=== PATIENT | male | born 1985 | race Caucasian/White ===

== ENCOUNTER 2021-07-09 16:08 | Emergency (ER) | payer OTHER ==
[~2021-07-09] VITALS: Ht 172.7 cm; Wt 68.5 kg
[2021-07-09 16:09] VITALS: BP 131/86
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
[2021-07-09] MEDS ORDERED: LORazepam 0.5 MG TAB PO ONE (16:40)
--- NOTE | 2021-07-09 17:28 | NUR ---
Patient discharged with v/s stable. Written and verbal after care instructions given and explained. Patient verbalized understanding. Ambulatory with steady gait. All questions addressed prior to discharge. Advised to follow up with PMD.
== END 2021-07-09 17:28 | disposition home or self-care (01) ==
LOC: MED 16:08
DX: F15.90 Other stimulant use, unspecified, uncomplicated (principal); F41.9 Anxiety disorder, unspecified
CPT/HCPCS: 99283